=== PATIENT | female | born 1995 | race Caucasian/White ===

== ENCOUNTER 2017-09-22 07:17 | Emergency (ER) | payer OTHER, SELFPAY ==
[2017-09-22 07:18] VITALS: BP 151/91; PULSE 82; RESP 16; TEMP 36.8; O2SAT 96; BMI 21.8
[2017-09-22] MEDS: 0.9% Normal Saline 1,000 ML 125 ML IV (07:50)
[2017-09-22] MEDS: Ketorolac 30 MG/ML Syringe IV (07:50)
[2017-09-22 07:59] LABS: Bacteria 0 SEEN /hpf (None Seen); Mucous, Urine 0 SEEN /hpf (<or=2+); Red Blood Cells-Urine 0 SEEN /hpf (0-5)
[2017-09-22 08:04] LABS: Absolute Lymphocyte Count 1.32 X10^3/ul (0.83-4.51); Absolute Neutrophil Count 8.8 X10^3/uL (2.0-7.7); Basophil# 0.05 X10^3/uL; Basophil% 0.4 % (0-1); Eosinophil# 0.31 X10^3/uL; Eosinophils% 2.7 % (0-5); Hematocrit 47.1 % (37-47); Hemoglobin 16.5 g/dl (12.0-15.0); Lymphocyte # 1.32 X10^3/ul (4.0); Lymphocyte % 11.5 % (19-41); Mean Corpuscular Hgb 34.2 pg (27.0-32.0); Mean Corpuscular Volume 97.5 fL (81-99); Mean Platelet Vol. 8.8 fl (6.2-12.0); Monocyte# 0.98 X10^3/uL; Monocyte% 8.6 % (0-10); Neutrophil # 8.76 X10^3/uL (2.7-7.7); Neutrophil % 76.5 % (47-70); Platelet Count 288 K/mm3 (150-450); RBC Distribution Width CV 11.8 % (11.6-14.6); RBC Distribution Width SD 41.7 fl (35.1-43.9); Red Blood Count 4.83 M/mm3 (4.2-5.4); White Blood Count 11.5 K/mm3 (4.4-11.0)
[2017-09-22 08:07] LABS: POSITIVE COUNT NO; POSITIVE DIFFERENTIAL NO; POSITIVE MORPHOLOGY NO
[2017-09-22 08:09] LABS: Color, Urine Yellow (Yellow); Glucose, Dipstick Normal (Normal); Ketone-Dipstick 5 mg/dl (Negative); Leukocyte Esterase-Dipstick 25 /ul (Negative); Nitrite-Dipstick Negative (Negative); Occult Blood-Urine 10 /ul (Negative); Protein-Dipstick 30 mg/dl (Negative); Specific Gravity, Urine 1.025 (1.002-1.030); Urine Clarity Sl. Cloudy (Clear); Urine Urobilinogen 1 mg/dl (Normal)
[2017-09-22 08:15] LABS: Urine Bilirubin Dipstick 1 mg/dL (Negative)
[2017-09-22 08:16] LABS: ALB/GLOB Ratio 1.3 RATIO (0.9-2.4); AST(SGOT) 8 U/L (15-37); Alanine Aminotransfer ALT/SGPT 18 U/L (13-56); Albumin, Serum 4.2 g/dL (3.2-5.0); Alkaline Phosphatase 46 U/L (45-117); Anion Gap 8 (5-15); BUN 11 mg/dL (7-18); BUN/Creat Ratio 9.6 RATIO (10-20); Calcium,Total 8.6 mg/dL (8.5-10.1); Chloride 107 mmol/L (98-107); Creatinine, Serum 1.15 mg/dL (0.55-1.02); EST Glomerular Filtration Rate 61 mL/min (>60); Est Glom Filt Rate - Afr Amer 74 mL/min (>60); Estimated Creatinine Clearance 73.35 ml/min; Globulin 3.3 g/dL (2.2-4.2); Glucose 88 mg/dL (74-106); Protein, Total 7.5 g/dL (6.4-8.2); Sodium Level 145 mmol/L (136-145)
[2017-09-22 08:16] LABS: Squamous Epithelial Cells - UA 5-10 SEEN /hpf (5-10); White Blood Cells 0-5 SEEN /hpf (0-5)
[2017-09-22 08:18] LABS: Pregnancy, Serum, hCG Quali. NEGATIVE Negative (0-9 Nonpreg)
--- NOTE | 2017-09-22 08:22 | CT_ITS ---
STUDY: CT ABDOMEN AND PELVIS WITH CONTRAST REASON FOR EXAM: Female, 22 years old. Pelvic pain for 6 days with nausea and vomiting RADIATION DOSAGE (If Supplied By Facility): CTDIvol = ( 9.40 ) mGy, DLP = ( 444.13 ) mGycm TECHNIQUE: Transaxial images were obtained from the dome of the diaphragm to the symphysis pubis without oral contrast. 100 ml of Isovue 300 contrast was administered. Sagittal and coronal images were reconstructed. Individualized dose optimization techniques were used for this CT. COMPARISON: None. FINDINGS: Lung bases demonstrate no evidence for consolidative process. Hepatic steatosis. The pancreas and adrenal glands are within normal limits. The bowel gas pattern is nonobstructive No evidence for acute appendicitis. Gallbladder and spleen are within normal limits Kidneys demonstrate no evidence for hydronephrosis. Uterus appears prominent with prominent adnexa. Trace amount of free fluid in the cul-de-sac suspected Abdominal aorta and the IVC are grossly within normal limits. Portal vein is patent Osseous structures demonstrate no acute abnormalities. IMPRESSION: No evidence for acute appendicitis or diverticulitis. Prominent uterus with thickened endometrium and adnexa possibly physiologic changes however not well characterized on this exam. Electronically Signed: Damian Moss, at 10:27 EDT Tel , Service support , CT/Abdomen/Pelvis WITH Contrast
[2017-09-22 09:32] VITALS: BP 129/89; PULSE 85; RESP 16; O2SAT 100
[2017-09-22 10:54] VITALS: BP 138/72; PULSE 85; RESP 16; O2SAT 98
--- NOTE | 2017-09-22 10:54 | ED.DCSUM_ITS ---
- ER Visit Summary Date of Service: 09/22/17 Chief Complaint: [Abdominal pain] History of Present Illness: The patient is a 22 F [presents the emergency department with abdominal pain that started about 6 days ago. Patient rates her pain as a 7 out of 10 and describes it as lower abdomen and into her back. Patient's had nausea this morning did vomit once and also had one loose stool. Patient denies any blood in her stool. Last menstrual period was 2 weeks ago. Patient states her last period was about a week early. Patient described the pain is bad. Cramping. Patient not currently having any vaginal bleeding. Patient denies any abnormal vaginal discharge.] Physical Examination: [HEENT-PERRLA, EOMI. Cranial nerves II through XII grossly intact. TMs clear. Mucous membranes moist. No adenopathy. Cardiovascular-regular rate and rhythm without murmur or ectopy Lungs-clear to auscultation, chest wall stable without crepitus or subcu emphysema Abdomen-normoactive bowel sounds, soft. Patient has tenderness to palpation over the lower abdomen diffusely. There is no rebound, rigidity, or peritoneal signs. Extremities-intact ?4, normal range of motion, normal pulses, atraumatic] Test Results: [CBC with differential obtained showed a white count of 11.5, hemoglobin 16, hematocrit 47, platelets 288. Chemistries unremarkable. LFTs unremarkable. Urinalysis was normal. HCG was negative. CT scan with IV and p.o. contrast obtained of the abdomen and pelvis which showed some thickened endometrium and prominent adnexa which could be physiologic otherwise nothing acute.] Emergency Department Course and Treatment: Patient was medicated with Toradol initially. Patient has had history of heroin abuse 3 years ago and did not want any narcotics for pain.] Treatment Plan: [Patient advised to take ibuprofen for pain. Patient does not want narcotics for home.] Disposition: [Discharged home in stable condition. Patient will be referred to Dr. Jimmy Payan for follow-up within the next 3-5 days. Patient to return if worsening pain, fever, or condition should worsen in any way.] Impression: [Abdominal pain-etiology uncertain] This note was generated with [email or web address] software. It may contain incorrect words, spelling, and punctuation that were not noted in review of the chart prior to signing ED Disposition - Plan for ED Patient: Chief Complaint: Abd Pain Referrals: [facility] Doctor,Out of [Primary Care Provider] -
--- NOTE | 2017-09-22 10:55 | ED.DEP ---
ED Disposition - Plan for ED Patient: Chief Complaint: Abd Pain Instructions: ED Abdominal Pain Unkn Cause Referrals: [facility] Doctor,Out of [Primary Care Provider] - Brianna Mota MD [STAFF PHYSICIAN] - 3-5 Days
== END 2017-09-22 11:00 | disposition home or self-care (01) ==
PROVIDERS: Emergency Provider Emergency Medicine
DX: R10.30 Lower abdominal pain, unspecified (principal); Z85.850 Personal history of malignant neoplasm of thyroid; Z72.0 Tobacco use
CPT/HCPCS: 74177; 80053; 81001; 84703; 85025; 96361; 96374; 99283; J7030; Q9967; A4216

== ENCOUNTER → 2017-09-23 11:59 | Outpatient (CLI) | payer OTHER, SELFPAY ==
[2017-09-23 13:40] LABS: HIV - WCH Non-Reactive (Nonreactive)
[2017-09-25 11:41] LABS: HCV Quant. RNA PCR HCV Not Detected IU/mL (.)
[2017-09-26 10:28] LABS: HEPATITIS B SURFACE AG Negative (Negative); HSV 2 IgG < 0.91 index (0.00-0.90)
[2017-09-27 03:45] LABS: Rapid Plasmin Reagin (RPR) NONREACTIVE (NONREACTIVE)
== END ==
PROVIDERS: Visit Provider Nurse Practitioner Women's Health
DX: Z11.3 Encounter for screening for infections with a predominantly sexual mode of transmission (principal)
CPT/HCPCS: 86592; 86695; 86696; 86703; 87340; 87522

== ENCOUNTER → 2017-09-23 16:59 | Outpatient (CLI) | payer OTHER, SELFPAY ==
[2017-09-23 21:12] LABS: Chlamydia Trachomatis by PCR POSITIVE (Negative); Neisserai gonorrhoeae by PCR Negative (Negative); Probe Check PASS
[2017-09-28 08:48] LABS: HPV Reflexed? NOT INDICATED
== END ==
PROVIDERS: PCP Nurse Practitioner Family; Visit Provider Nurse Practitioner Women's Health
DX: Z12.4 Encounter for screening for malignant neoplasm of cervix (principal); Z11.3 Encounter for screening for infections with a predominantly sexual mode of transmission
CPT/HCPCS: 87070; 87205; 87491; 87591; 88175; G0145

== ENCOUNTER → 2017-10-23 14:09 | Outpatient (CLI) | payer OTHER, SELFPAY ==
[2017-10-23 16:12] LABS: Chlamydia Trachomatis by PCR Negative (Negative); Neisserai gonorrhoeae by PCR Negative (Negative); Probe Check PASS; Sample Adequacy Control PASS; Specimen Processing Control PASS
== END ==
PROVIDERS: Visit Provider Nurse Practitioner Women's Health
DX: Z86.19 Personal history of other infectious and parasitic diseases (principal)
CPT/HCPCS: 87491; 87591